=== PATIENT | male | born 1945 | race Caucasian/White ===

== ENCOUNTER → 2016-11-14 | Outpatient (REF) ==
--- NOTE | 2016-11-14 17:27 | REP ---
Left shoulder three views: Comparison is 09/17/2016. There is mild osteoarthritis of the acromioclavicular joint. There is moderate glenohumeral osteoarthritis. There is a calcification adjacent to the humeral head tuberosity scan Panel with calcific tendonitis. All of these findings are stable and unchanged. Mineralization is normal. Impression: Acromioclavicular and glenohumeral osteoarthritis. Calcific tendonitis. No interval change. Signed by Fei Hall MD 11/14/2016 05:18 P
--- NOTE | 2016-11-14 17:30 | REP ---
Bilateral hands: Right hand four views: There is osteoarthritis at the thumb MCP calculation with subluxation of the base of the thumb proximal phalange. There is mild osteoarthritis in the DIP and PIP articulations. The MCP articulations are unremarkable. The carpal articulations are unremarkable. There is calcification in the triangular fibrocartilage compatible with CPPD. Impression: Osteoarthritis as described. Probable CPPD. Left hand four views: There is subluxation of the thumb MCP articulation with associated osteoarthritis. There is osteoarthritis at the thumb CMC articulation. The DIP and PIP articulations are unremarkable except for mild joint space narrowing of the DIP articulations. The MCP articulations are unremarkable. Carpal articulations are unremarkable. Impression: Osteoarthritis of the thumb. A mild joint space narrowing of the DIP articulations. Signed by Fei Hall MD 11/14/2016 05:21 P
== END ==
LOC: M RAD 15:36
PROVIDERS: ATTEND Internal Medicine
DX: M25.512 Pain in left shoulder (principal); M79.641 Pain in right hand; M79.642 Pain in left hand

== ENCOUNTER → 2018-02-20 | Outpatient (REF) | payer BC, OTHER ==
[2018-02-20 11:59] LABS: APPEARANCE, URINE HAZY (CLEAR); BACTERIA, URINE AUTO NEGATIVE (NEGATIVE); BILIRUBIN, URINE AUTO NEGATIVE (NEGATIVE); BLOOD, URINE BLOOD NEGATIVE (NEGATIVE); COLOR, URINE YELLOW (YELLOW); GLUCOSE, URINE (UA) AUTO NEGATIVE (NEGATIVE); KETONE, URINE AUTO NEGATIVE (NEGATIVE); LEUKOCYTE ESTERASE, URINE AUTO NEGATIVE (NEGATIVE); NITRITE, URINE AUTO NEGATIVE (NEGATIVE); PROTEIN, URINE AUTO NEGATIVE (NEGATIVE); RBC, URINE AUTO 2 /HPF (0-3); SPECIFIC GRAVITY URINE AUTO 1.015 (1.002-1.035); SQUAMOUS EPITHELIAL CELL UR AU 0 /HPF (0-6); UROBILINOGEN, URINE AUTO 0.2 mg/dL (0.0-2.0); WBC, URINE AUTO 0 /HPF (0-3)
== END ==
LOC: M SMT 10:53
PROVIDERS: ATTEND Urology Pediatric Urology
DX: N48.6 Induration penis plastica (principal)

== ENCOUNTER → 2021-06-29 | Outpatient (REF) | payer OTHER, MEDICARE | LOC: M LAB REF 19:15 | PROVIDERS: ATTEND Physician Assistant | DX: R50.9 Fever, unspecified (principal) ==

== ENCOUNTER → 2021-07-04 | Outpatient (CLI) | payer OTHER | LOC: M RAD 14:15 | PROVIDERS: ATTEND Physician Assistant Medical | DX: R50.9 Fever, unspecified (principal); R06.02 Shortness of breath ==

== ENCOUNTER → 2021-11-28 | Outpatient (CLI) | payer OTHER ==
[~2021-11-28] MED LIST: DONE10TA90; ROSU20TA5; SYNT75TA
== END ==
LOC: M LABSMTC 11:26
PROVIDERS: ATTEND Anesthesiology
DX: Z01.812 Encounter for preprocedural laboratory examination (principal); Z20.822 Contact with and (suspected) exposure to COVID-19

== ENCOUNTER 2021-11-30 07:27 | Day surgery (SDC) | payer OTHER ==
[~2021-11-30] VITALS: Ht 167.6 cm; Wt 70.5 kg
[~2021-11-30 07:27] MED LIST changes: +ACETYLCHOLINE OPHTH SOLN 1% 2ML (MIOCHOL-E) As Ordered ONE; +LIDOCAINE 1% 1ML PF SYRINGE (OR EYE CASES) As Ordered ONE; +LR 1,000 ML IV SCH; +MAXITROL OPHTH SUSP 5 ML As Ordered ONE; +PHENYLEPHRINE HCL 10 % OPHTH. SOL 5ML OD ONE
[2021-11-30] MEDS ORDERED: fentaNYL 100 MCG/2 ML INJECTION As Ordered ONE (08:19)
[2021-11-30] MEDS ORDERED: MIDAZOLAM INJ 2MG/2ML VIAL (J2250 PER 1MG) As Ordered ONE (08:19)
[2021-11-30] MEDS: PHENYLEPHRINE 2.5% OPHTH SOL 2ML OD SCH (08:37)
[2021-11-30] MEDS: FLURBIPROFEN 0.03% OPHTH SOLN 2.5 ML OD SCH (08:37)
[2021-11-30] MEDS: TETRACAINE 0.5% OPHTH SOLN 4ML OD SCH (08:37)
[2021-11-30] MEDS: CYCLOPENTOLATE 1% OPHTH SOLN 2 ML BTL OD SCH (08:37)
[2021-11-30 10:10] VITALS: BP 143/62
== END 2021-11-30 10:34 | disposition home or self-care (01) ==
LOC: M SDC 07:27
PROVIDERS: ATTEND Ophthalmology
DX: H25.11 Age-related nuclear cataract, right eye (principal); E03.9 Hypothyroidism, unspecified; E78.5 Hyperlipidemia, unspecified; Z79.899 Other long term (current) drug therapy; Z87.891 Personal history of nicotine dependence
CPT/HCPCS: 66984; J2250; J3010

== ENCOUNTER → 2022-04-30 | Outpatient (CLI) | payer OTHER ==
[~2022-04-30] MED LIST changes: -ACETYLCHOLINE OPHTH SOLN 1% 2ML (MIOCHOL-E) As Ordered ONE; -LIDOCAINE 1% 1ML PF SYRINGE (OR EYE CASES) As Ordered ONE; -LR 1,000 ML IV SCH; -MAXITROL OPHTH SUSP 5 ML As Ordered ONE; -PHENYLEPHRINE HCL 10 % OPHTH. SOL 5ML OD ONE
== END ==
LOC: M WUC 15:27
PROVIDERS: ATTEND Family Medicine
DX: N39.0 Urinary tract infection, site not specified (principal)

== ENCOUNTER 2022-09-13 17:52 | Inpatient (IN) | payer MEDICARE, OTHER ==
[~2022-09-13] VITALS: Ht 165.1 cm; Wt 66.2 kg
[~2022-09-13 17:52] MED LIST changes: -ROSU20TA5; +ROSU20TA61
[2022-09-13 22:00] VITALS: BP 120/55; TEMP 97.4; O2SAT 87
[2022-09-13 22:25] VITALS: O2SAT 92
[2022-09-13 22:30] VITALS: BP 111/56; O2SAT 91
[2022-09-13 23:00] VITALS: BP 118/52; O2SAT 90
[2022-09-13 23:17] LABS: ABG BASE EXCESS -0.2 (-2.0-2.0); ABG HCO3 19.8 MMOL/L (22.0-26.0); ABG O2 SATURATION 94.3 % (95.0-99.0); ABG PARTIAL PRESSURE CO2 22.3 mmHg (35.0-45.0); ABG PARTIAL PRESSURE O2 73.4 mmHg (75.0-100.0); ABG STANDARD HCO3 24.2 MMOL/L. (22.0-26.0); ABG TOTAL CO2 20.5 MMOL/L (23.0-31.0); ABG pH (ARTERIAL) 7.566 UNITS (7.350-7.450)
[2022-09-13 23:23] LABS: BASO % 0.1 % (0.0-1.0); HEMOGLOBIN 14.1 g/dl (13.5-17.5); LYMPH # 0.7 10^3/uL (1.5-5.0); LYMPH % 4.4 % (24.0-44.0); MEAN CORPUSCULAR HEMOGLOBIN 32.9 pg (27.0-33.0); MEAN CORPUSCULAR HGB CONC 34.4 g/dl (32.0-36.5); MEAN CORPUSCULAR VOLUME 95.6 fl (80.0-96.0); MONO # 1.2 10^3/uL (0.0-0.8); MONO % 7.4 % (2.0-8.0); NEUTROPHILS # 13.6 10^3/uL (1.5-8.5); NEUTROPHILS % 87.6 % (36.0-66.0); PLATELET COUNT, AUTOMATED 173 10^3/uL (150-450); RED BLOOD COUNT 4.29 10^6/uL (4.30-6.10); WHITE BLOOD COUNT 15.5 10^3/uL (4.0-10.0)
[2022-09-13 23:30] VITALS: BP 115/53; O2SAT 91
[2022-09-13 23:45] VITALS: BP 108/53; O2SAT 96
[2022-09-13] MEDS ORDERED: ALBUTEROL SULFATE 2.5MG/0.5ML INH NEB SOLN NEB ONE (23:50)
[2022-09-13] MEDS ORDERED: ALBUTEROL SULFATE 2.5MG/0.5ML INH NEB SOLN NEB PRN (23:50)
[2022-09-13] MEDS ORDERED: GLUCAGON INJ 1MG VIAL SC PRN (23:55)
[2022-09-13] MEDS ORDERED: ACETAMINOPHEN TAB 650MG DOSE (2X325MG) PO PRN (23:55)
[2022-09-13] MEDS ORDERED: GLUCOSE 4GM CHEW TABLET PO PRN (23:55)
[2022-09-13] MEDS ORDERED: DEXTROSE 50% 50ML SYRINGE IV PRN (23:55)
[2022-09-13 23:58] LABS: CK-MB VALUE MASS 4.6 NG/ML (<3.6)
[2022-09-13 23:59] LABS: MB/CK RELATIVE INDEX 2.45 (< OR =4)
[2022-09-14] VITALS (9 sets, daily range): BP systolic 108–119; BP diastolic 51–74; TEMP 97.4–97.5; O2SAT 92–99
[2022-09-14 00:02] LABS: ALBUMIN 2.8 G/DL (3.2-5.2); BILIRUBIN,DIRECT 0.6 MG/DL (<0.4); BILIRUBIN,TOTAL 1.2 MG/DL (0.3-1.2); CALCIUM LEVEL 8.8 MG/DL (8.3-10.6); CREATININE FOR GFR 4.47 MG/DL (0.70-1.30); GLOMERULAR FILTRATION RATE 13.7 (>42); PHOSPHORUS LEVEL 9.4 MG/DL (2.4-5.1); POTASSIUM SERUM 4.1 MMOL/L (3.5-5.1); TOTAL PROTEIN 5.5 G/DL (5.7-8.2)
[2022-09-14 00:52] LABS: APPEARANCE, BODY FLUID HAZY (CLEAR); PLEURAL FL COLOR YELLOW (COLORLESS); SOURCE, BODY FLUID PLEURAL
[2022-09-14 00:56] LABS: SOURCE, BODY FLUID ALBUMIN PLEURAL
[2022-09-14 01:00] LABS: SOURCE, BODY FLUID GLUCOSE PLEURAL
[2022-09-14 01:01] LABS: SOURCE, BODY FLUID TRIG PLEURAL; TRIGLYCERIDE, BODY FLUID 33 MG/DL (NOT ESTABLISHED)
[2022-09-14 01:02] LABS: LDH, BODY FLUID 127 U/L (NOT ESTABLISHED); SOURCE, BODY FLUID LDH PLEURAL
[2022-09-14 01:03] LABS: AMYLASE, BODY FLUID < 20 U/L (NOT ESTABLISHED); CHOLESTEROL, BODY FLUID < 25 MG/DL (NOT ESTABLISHED); SOURCE, BODY FLUID AMYLASE PLEURAL; SOURCE, BODY FLUID CHOL PLEURAL; SOURCE, BODY FLUID TOT PROTEIN PLEURAL; TOTAL PROTEIN, BODY FLUID < 2.0 G/DL (NOT ESTABLISHED)
[2022-09-14] MEDS ORDERED: RAMELTEON 8 MG TAB (ROZEREM) PO ONE (02:20)
[2022-09-14] MEDS ORDERED: DONE10TA90 PO (03:10)
[2022-09-14] MEDS ORDERED: ROSU20TA61 PO (03:10)
[2022-09-14] MEDS ORDERED: SPIR-10 PO (03:10)
[2022-09-14] MEDS ORDERED: CIPR500T39 PO (03:10)
[2022-09-14] MEDS ORDERED: FURO40TA2 PO (03:10)
[2022-09-14] MEDS ORDERED: SYNT75TA PO (03:10)
[2022-09-14] MEDS ORDERED: METO1TAB32 PO (03:10)
[2022-09-14] MEDS ORDERED: ASPI-161 PO (03:10)
[2022-09-14] MEDS ORDERED: MUCI600T31 PO (03:11)
[2022-09-14] MEDS ORDERED: BUSP5TA PO (03:11)
[2022-09-14] MEDS ORDERED: VITMTA PO (03:11)
[2022-09-14] MEDS ORDERED: LOVE1INJ2 SC (03:11)
[2022-09-14] MEDS ORDERED: PANT40IN4 IV (03:11)
[2022-09-14] MEDS ORDERED: RISATAB3 PO (03:11)
[2022-09-14] MEDS ORDERED: VERI2.5T PO (03:11)
[2022-09-14] MEDS ORDERED: C 50TAB PO (03:11)
[2022-09-14] MEDS ORDERED: VANC125C3 PO (03:11)
[2022-09-14] MEDS ORDERED: INSURSDRX SC (03:11)
[2022-09-14] MEDS ORDERED: IPRA0.00 INH (03:11)
[2022-09-14] MEDS ORDERED: ALBU2.5V10 INH (03:11)
[2022-09-14] MEDS ORDERED: HOME MED LIST COMPLETE! XX SCH (03:15)
[2022-09-14] MEDS ORDERED: LEVOTHYROXINE 75MCG TABLET (0.075MG) PO SCH (06:00)
[2022-09-14] MEDS ORDERED: MORPHINE 4 MG/ML 1ML VIAL IV ONE (06:55)
[2022-09-14] MEDS ORDERED: FLEET ENEMA PR PRN (07:15)
[2022-09-14] MEDS ORDERED: SCOPOLAMINE 1MG TRANSDERMAL PATCH TOP PRN (07:15)
[2022-09-14] MEDS ORDERED: ONDANSETRON 4MG ORAL DISINTEGRATING TAB PO PRN (07:15)
[2022-09-14] MEDS ORDERED: LORazepam 1 MG TAB PO PRN (07:15)
[2022-09-14] MEDS ORDERED: INSULIN LISPRO (NovoLOG) PER UNIT SC SCH ×2 (07:30→21:00)
[2022-09-14] MEDS ORDERED: IPRATROPIUM 0.5MG/ALBUTEROL 2.5MG INH SOL UD 3ML (DUONEB) NEB SCH (08:00)
[2022-09-14] MEDS ORDERED: PANTOPRAZOLE 40MG VIAL IV SCH (09:00)
[2022-09-14] MEDS ORDERED: NYSTATIN 500,000U/5ML SUSP UDC SS SCH (09:00)
[2022-09-14] MEDS ORDERED: ENOXAPARIN 30MG/0.3ML SYRINGE (J1650 PER 10MG) SC SCH (09:00)
[2022-09-14] MEDS: MORPHINE 2 MG/ML 1ML VIAL IV PRN ×2 (10:15→12:20)
[2022-09-14] MEDS ORDERED: ATIV1TAB10 PO (10:32)
[2022-09-14] MEDS ORDERED: HYOS125TA PO (10:32)
[2022-09-14] MEDS ORDERED: MORP1SOL5 PO (10:32)
== END 2022-09-14 12:51 | disposition hospice, home (50) | DRG 682 ==
LOC: M ICU 21:45
PROVIDERS: ADMIT Internal Medicine Pulmonary Disease; ATTEND Internal Medicine Pulmonary Disease
PROC: 0W993ZZ Drainage of Right Pleural Cavity, Percutaneous Approach (ICD-10-PCS; principal; 2022-09-13)
DX: N17.9 Acute kidney failure, unspecified (principal); J96.91 Respiratory failure, unspecified with hypoxia; J84.9 Interstitial pulmonary disease, unspecified; E87.20 Acidosis, unspecified; E87.3 Alkalosis; J90 Pleural effusion, not elsewhere classified; E87.4 Mixed disorder of acid-base balance; Z95.2 Presence of prosthetic heart valve; F03.90 Unspecified dementia, unspecified severity, without behavioral disturbance, psychotic disturbance, mood disturbance, and anxiety; E03.9 Hypothyroidism, unspecified; E78.5 Hyperlipidemia, unspecified; D64.9 Anemia, unspecified; Z79.899 Other long term (current) drug therapy; Z79.891 Long term (current) use of opiate analgesic; Z66 Do not resuscitate; I25.9 Chronic ischemic heart disease, unspecified; R74.01 Elevation of levels of liver transaminase levels; R77.8 Other specified abnormalities of plasma proteins; I50.9 Heart failure, unspecified